=== PATIENT | male | born 1990 | race Caucasian/White ===

== ENCOUNTER 2018-12-02 18:59 | Emergency (ER) | payer MEDICAID ==
[~2018-12-02] VITALS: Ht 172.7 cm; Wt 88.6 kg
[2018-12-02] MEDS ORDERED: PENI500T2 PO (20:54)
[2018-12-02] MEDS ORDERED: HYDR-4353 PO (20:54)
[2018-12-02 21:02] VITALS: BP 115/78
== END 2018-12-02 21:05 | disposition home or self-care (01) ==
LOC: ER 18:59
DX: K08.89 Other specified disorders of teeth and supporting structures (principal); Z88.5 Allergy status to narcotic agent
CPT/HCPCS: 99283

== ENCOUNTER 2020-08-03 09:11 | Emergency (ER) | payer MEDICAID ==
[~2020-08-03] VITALS: Ht 172.7 cm; Wt 95.5 kg
[2020-08-03 09:21] VITALS: BP 125/71
[2020-08-03] MEDS ORDERED: BUPIVAcaine/PF 2.5 mg/ml (0.25%) 30ml vial IJ ONE (09:45)
[2020-08-03] MEDS ORDERED: BUPIVAcaine/PF 2.5mg/ml (0.25%) 10ml vial IJ ONE (09:55)
[2020-08-03] MEDS ORDERED: PENI500T2 PO (09:56)
== END 2020-08-03 10:47 | disposition home or self-care (01) ==
LOC: ER 09:12
DX: K04.7 Periapical abscess without sinus (principal); Z88.8 Allergy status to other drugs, medicaments and biological substances; Z79.2 Long term (current) use of antibiotics
CPT/HCPCS: 64400; 99283; 99284